=== PATIENT | female | born 2000 | race Caucasian/White ===

== ENCOUNTER 2025-01-05 11:54 | Emergency (ER) | payer OTHER ==
[~2025-01-05] VITALS: Ht 160 cm; Wt 53.2 kg
[2025-01-05 12:52] LABS: BASO # 0.1 10^3/uL (0.0-0.2); BASO % 0.5 % (0.0-1.0); EOS # 0.1 10^3/uL (0.0-0.5); EOS % 0.7 % (0.0-3.0); LYMPH # 3.0 10^3/uL (1.5-5.0); LYMPH % 26.1 % (24.0-44.0); MONO # 0.7 10^3/uL (0.0-0.8); MONO % 6.3 % (2.0-8.0); NEUTROPHILS # 7.5 10^3/uL (1.5-8.5); NEUTROPHILS % 66.0 % (36.0-66.0); PLATELET COUNT, AUTOMATED 463 10^3/uL (150-450)
[2025-01-05] MEDS: SODIUM CHLORIDE 0.9% 1000 ML IV STA (12:54)
[2025-01-05 12:59] LABS: HCG, SERUM QUALITATIVE NEGATIVE (NEGATIVE)
[2025-01-05 13:06] LABS: ALT/SGPT 27 U/L (7.0-40); AST/SGOT 15 U/L (<34); CALCIUM LEVEL 10.1 MG/DL (8.5-10.1); CARBON DIOXIDE LEVEL 17 MMOL/L (20-31); CHLORIDE LEVEL 106 MMOL/L (98-107); CREATININE FOR GFR 0.97 MG/DL (0.55-1.30); GLOMERULAR FILTRATION RATE 83.2 (>60); POTASSIUM SERUM 2.8 MMOL/L (3.5-5.1); SODIUM LEVEL 135 MMOL/L (136-145)
[2025-01-05] MEDS ORDERED: HOME MED LIST COMPLETE! XX SCH (13:10)
[2025-01-05] MEDS: KCL 10MEQ/100ML SWI (KRUN) 10 MEQ in IV 1 EA IV ONE (13:35)
[2025-01-05 13:50] LABS: MAGNESIUM LEVEL 2.1 MG/DL (1.8-2.4)
[2025-01-05] MEDS ORDERED: ONDA-282 PO (16:26)
[2025-01-05] MEDS ORDERED: LOPE1CAP5 PO (16:26)
[2025-01-05 16:40] VITALS: BP 123/67; TEMP 98; O2SAT 100
[2025-01-05] MEDS: ONDANSETRON 4MG/2ML VIAL IV ONE (16:41)
[2025-01-05] MEDS: POTASSIUM CHLORIDE 10MEQ SR TABLET PO ONE (16:43)
[2025-01-05] MEDS: LOPERAMIDE 2 MG CAPLET PO ONE (16:43)
== END 2025-01-05 16:48 | disposition home or self-care (01) ==
LOC: M ED 11:54
DX: R11.2 Nausea with vomiting, unspecified (principal); B34.0 Adenovirus infection, unspecified; Z88.0 Allergy status to penicillin; Z88.1 Allergy status to other antibiotic agents
CPT/HCPCS: 80047; 80048; 80076; 83605; 83690; 83735; 84703; 85025; 87486; 87507; 87581; 87633; 87798; 93041; 96365; 96375; 99284; J2405